=== PATIENT | male | born 1945 ===

== ENCOUNTER 2018-08-17 11:08 | Day surgery (SDC) | payer OTHER ==
[2018-08-17 09:08] VITALS: BMI 25.7
[2018-08-17] MEDS ORDERED: Oxycodone/Acetaminophen 5/325 mg Tab PO PRN (12:48)
[2018-08-17] MEDS ORDERED: cefTRIAXone 1 gm 1 GM/100 ML BAG IVPB ONE (12:51)
[2018-08-17] MEDS ORDERED: Lidocaine 2% Jelly (Uro-Jet) ONE (12:51)
[2018-08-17] MEDS ORDERED: Midazolam 2 MG/2 ML VIAL ONE (12:54)
[2018-08-17] MEDS ORDERED: Propofol 10 mg/ml Inj (20 ML) ONE (12:56)
[2018-08-17] MEDS ORDERED: Morphine 4 MG/ML VIAL IVP PRN (13:10)
[2018-08-17] MEDS ORDERED: Gentamicin 80 mg in 0.9% NS 80 MG/100 ML BAG IVPB SCH (13:30)
[2018-08-17 14:04] VITALS: PULSE 65; RESP 18; TEMP 97.5
[2018-08-17 14:15] VITALS: O2SAT 99
[2018-08-17 14:27] VITALS: BP 118/76
[2018-08-17] MEDS ORDERED: Atropine 0.4 mg/ml Inj (1 mL) ONE (15:40)
--- NOTE | 2018-09-02 09:49 | OP ---
PROCEDURE DATE: 08/17/2018 PREOPERATIVE DIAGNOSES: Elevated prostate-specific antigen, voiding dysfunction, irritative and obstructive urinary complaints. POSTOPERATIVE DIAGNOSES: Elevated prostate-specific antigen, voiding dysfunction, irritative and obstructive urinary complaints. PROCEDURE: Ultrasound of the prostate and ultrasound-guided prostate biopsy. ESTIMATED BLOOD LOSS: Less than 10 mL. COMPLICATIONS: There were no complications. SENT OUT SPECIMEN: A total of 12 cores sent from left base, left mid, left apex, right base, right mid, right apex. A total of 12 cores medial and lateral. The postop biopsy was within normal limits. INDICATIONS: See history and physical for further details. This is a very pleasant gentlemen with irritative and obstructive urinary complaints, elevated PSA, here for the above. We discussed risks, benefits, and alternatives. We have medical clearance. We stopped the Plavix and the patient is here now. DESCRIPTION OF PROCEDURE: After obtaining informed consent, the patient was placed on the table. Routine monitors were placed. We did a time-out to confirm the patient. Antibiotic prophylaxis used. The patient was in decubitus position with the left lateral decubitus position. The probe was inserted via the rectum. We took pictures, transverse and longitudinal. We used a BK 7.5 MHz probe and we used the BK machine. The patient was . Biopsies were done randomly. There was no specific hypoechoic lesion. The random biopsies , left base, left mid, left apex, right base, right mid, right apex. We did a total of 12 cores. Post-biopsy rectal exam within normal limits. The patient tolerated without complications. Hong Mullen MD
--- NOTE | 2018-09-02 19:13 | HP ---
UROLOGY ADMISSION HISTORY AND PHYSICAL REASON FOR ADMISSION: Preparation for a prostate ultrasound and biopsy. HISTORY OF PRESENT ILLNESS: Mr. Brooks is a very pleasant gentleman. He has multiple medical issues. He has an elevated PSA and also irritative and obstructive voiding dysfunction. He is here today for a prostate ultrasound and biopsy. We had some difficulty with the scheduling due to the blood thinner medication of Plavix and aspirin and he was actually previously scheduled about a week ago. PAST MEDICAL AND SURGICAL HISTORY: As listed on the chart. Medical clearance has also been obtained. REVIEW OF SYSTEMS: Listed above, otherwise noncontributory. MEDICATIONS: See in the chart. ALLERGIES: SEE IN THE CHART. PHYSICAL EXAMINATION: GENERAL: He is a well-developed, well-nourished male, in no apparent distress. VITAL SIGNS: Within normal limits including the chart. LUNGS: Clear. HEART: Normal S1 and S2. ABDOMEN: Overall soft, nontender. There are no flank masses appreciated. GENITOURINARY: He has a normal phallus. No testicular mass appreciated. RECTAL: A 20 to 30 g prostate, soft and smooth. LABORATORY DATA: In the chart. DIAGNOSES: Voiding dysfunction and elevated prostate-specific antigen. ASSESSMENT AND PLAN: In summary, a very pleasant gentleman with the above history, irritative and obstructive voiding complaints. He has no gross hematuria. He may have microhematuria and he has an elevated prostate-specific antigen. We discussed with the patient risks, benefits, and treatment alternatives. The plan is as follows: An ultrasound of the prostate, ultrasound-guided prostate biopsy, and then antibiotic prophylaxis and then further plans will follow. Hong Mullen MD
== END 2018-08-17 14:29 | disposition home or self-care (01) ==
LOC: C.SDS 11:08
PROVIDERS: ATTEND Urology
DX: R97.20 Elevated prostate specific antigen [PSA] (principal); N39.9 Disorder of urinary system, unspecified; R39.9 Unspecified symptoms and signs involving the genitourinary system; E11.9 Type 2 diabetes mellitus without complications; I10 Essential (primary) hypertension; E78.5 Hyperlipidemia, unspecified
CPT/HCPCS: 55700; 82948; 88305; 88342; J0461; J0696; J1580; J2250; J2704